=== PATIENT | male | born 1980 | race Caucasian/White ===

== ENCOUNTER 2018-11-08 10:34 | Inpatient (IN) | payer MEDICAID ==
[~2018-11-08] VITALS: Ht 154.9 cm; Wt 94.3 kg
[2018-11-08] MEDS ORDERED: ASPIRIN 325 MG TABLET ONE (10:49)
[2018-11-08 11:00] LABS: LYMPHOCYTES # (AUTO) 1.8 /CMM (0.8-4.8); MONOCYTES # (AUTO) 0.7 /CMM (0.1-1.30); MONOCYTES % (AUTO) 9.1 % (2.0-12.0)
[2018-11-08] MEDS ORDERED: ASPIRIN 325 MG TABLET PO ONE (11:00)
[2018-11-08 11:03] LABS: BASOPHILS % (AUTO) 0.4 % (0.0-2.0); EOSINOPHILS % (AUTO) 0.8 % (0.0-6.0); HEMATOCRIT 45 % (39-51); HEMOGLOBIN 15.4 g/dL (13.5-17.5); LYMPHOCYTES % (AUTO) 22.2 % (20.0-44.0); MEAN CORPUSCULAR HGB CONC 34 g/dl (31.0-36.0); MEAN CORPUSCULAR VOLUME 93 fL (80-96); NEUTROPHILS # (AUTO) 5.5 /CMM (1.8-8.9); NEUTROPHILS % (AUTO) 67.5 % (43.0-81.0); PLATELET COUNT (AUTO) 266 /CMM (150-450); RED BLOOD CELL COUNT(AUTO) 4.85 MIL/uL (4.5-6.0); WHITE BLOOD COUNT (AUTO) 8.1 K/uL (4.3-11.0)
[2018-11-08 11:13] LABS: CALCIUM, SERUM 9.5 mg/dL (8.5-10.1); CARBON DIOXIDE 30 mmol/L (21-32); CHLORIDE 102 mmol/L (98-107); CREATININE 0.6 mg/dL (0.6-1.3); GLUCOSE 124 mg/dL (74-106); SODIUM SERUM 139 mmol/L (136-145); UREA NITROGEN, BLOOD 15 mg/dL (7-18)
[2018-11-08] MEDS ORDERED: IOHEXOL-350 100 ML VIAL IV ONE (13:29)
[2018-11-08] MEDS ORDERED: IV NS 0.9% 250 ML IV ONE (13:30)
[2018-11-08] MEDS ORDERED: CT SWABBABLE VALVE TRANS SET 1 EA INFUS.SET MC ONE (13:30)
[2018-11-08] MEDS ORDERED: METOPROLOL TARTRATE INJ 5 MG/5 ML AMPUL ONE ×2 (13:34→13:50)
[2018-11-08] MEDS ORDERED: METOPROLOL TARTRATE INJ 5 MG/5 ML AMPUL IVP ONE (14:00)
[2018-11-08] MEDS ORDERED: IV NS 0.9% 500 ML IV PRN (14:00)
[2018-11-08] MEDS ORDERED: NITROGLYCERIN 0.4 MG/TAB BOTTLE SL PRN (14:30)
[2018-11-08] MEDS ORDERED: MORPHINE SULFATE INJ 2 MG/ML DISP.SYRIN IV PRN (14:30)
[2018-11-08] MEDS ORDERED: CARVEDILOL 6.25 MG TABLET PO SCH (14:30)
[2018-11-08 16:20] VITALS: BP 112/76
[2018-11-08] MEDS ORDERED: METF-440 PO (16:46)
[2018-11-08] MEDS: METOPROLOL TARTRATE 25 MG TABLET PO SCH (18:22)
[2018-11-08 20:16] VITALS: BP 118/74
[2018-11-09] VITALS: BP 109/64
[2018-11-09] MEDS: METOPROLOL TARTRATE 25 MG TABLET PO SCH ×2 (00:22→05:40)
[2018-11-09] MEDS ORDERED: INSULIN REGULAR, HUMAN 100 UNIT/ML 3 ML VIAL SQ PRN (02:00)
[2018-11-09] MEDS ORDERED: DEXTROSE 50%-WATER 50 ML DISP.SYRIN IV PRN (02:00)
[2018-11-09 04:00] VITALS: BP 112/64
[2018-11-09] MEDS: BLOOD SUGAR DIAGNOSTIC 1 EACH STRIP IN SCH ×2 (06:29→12:57)
[2018-11-09 07:07] LABS: BASOPHILS % (AUTO) 0.2 % (0.0-2.0); EOSINOPHILS % (AUTO) 1.1 % (0.0-6.0); HEMATOCRIT 43 % (39-51); HEMOGLOBIN 14.4 g/dL (13.5-17.5); LYMPHOCYTES % (AUTO) 25.6 % (20.0-44.0); MEAN CORPUSCULAR HGB CONC 34 g/dl (31.0-36.0); MEAN CORPUSCULAR VOLUME 93 fL (80-96); MONOCYTES # (AUTO) 0.7 /CMM (0.1-1.30); MONOCYTES % (AUTO) 9.3 % (2.0-12.0); NEUTROPHILS % (AUTO) 63.8 % (43.0-81.0); PLATELET COUNT (AUTO) 257 /CMM (150-450); RED BLOOD CELL COUNT(AUTO) 4.64 MIL/uL (4.5-6.0); WHITE BLOOD COUNT (AUTO) 7.8 K/uL (4.3-11.0)
[2018-11-09 07:34] LABS: ALANINE AMINOTRANSFERASE 40 U/L (12-78); ALBUMIN 3.6 g/dL (3.4-5.0); ALKALINE PHOSPHATASE 56 U/L (46-116); ASPARTATE AMINOTRANSFERASE 15 U/L (15-37); BILIRUBIN,TOTAL 0.5 mg/dL (0.2-1.0); CALCIUM, SERUM 9.1 mg/dL (8.5-10.1); CARBON DIOXIDE 31 mmol/L (21-32); CHLORIDE 101 mmol/L (98-107); CREATININE 0.7 mg/dL (0.6-1.3); GLUCOSE 118 mg/dL (74-106); MAGNESIUM 1.9 mg/dL (1.8-2.4); PHOSPHORUS 3.7 mg/dL (2.5-4.9); POTASSIUM 3.8 mmol/L (3.5-5.1); SODIUM SERUM 136 mmol/L (136-145); UREA NITROGEN, BLOOD 14 mg/dL (7-18)
[2018-11-09 08:00] VITALS: BP 103/61
[2018-11-09 08:16] VITALS: BP 103/61
[2018-11-09] MEDS ORDERED: ATORVASTATIN 10 MG TABLET PO SCH (09:00)
[2018-11-09] MEDS ORDERED: LOSARTAN POTASSIUM 50 MG TABLET PO SCH (09:00)
[2018-11-09] MEDS ORDERED: ASPIRIN 81 MG TAB.CHEW PO SCH (09:00)
== END 2018-11-09 12:45 | disposition home or self-care (01) | DRG 203 ==
LOC: ER 10:37 → TELE 12:44 → MED 11-09 08:26
PROVIDERS: ADMIT Internal Medicine; ATTEND Internal Medicine
DX: M94.0 Chondrocostal junction syndrome [Tietze] (principal); E66.01 Morbid (severe) obesity due to excess calories; E11.9 Type 2 diabetes mellitus without complications; Z68.39 Body mass index [BMI] 39.0-39.9, adult; Z79.84 Long term (current) use of oral hypoglycemic drugs
CPT/HCPCS: 36415; 71045-TC; 75574; 80048-TC; 80053-TC; 82962-TC; 83735-TC; 84100-TC; 84484-TC; 85025-TC; 85730-TC; 87081-TC; 93307-TC; G0378; J1815; J2270; J3490; J7050; Q9967

== ENCOUNTER 2019-08-21 13:25 | Emergency (ER) | payer SELFPAY ==
[~2019-08-21] VITALS: Ht 157.5 cm; Wt 88.5 kg
[~2019-08-21 13:25] MED LIST: METF-440 PO
--- NOTE | 2019-08-21 13:29 | NUR ---
"C/P PRESSURE LIKE CHEST PAIN x 2 DAYS, RADIATING TO R UPPER BACK" pt [id number], -sob, nad noted, vss ,pending md lopez
[2019-08-21] MEDS ORDERED: NITROGLYCERIN 0.4 MG/TAB BOTTLE ONE (13:43)
[2019-08-21] MEDS ORDERED: ASPIRIN 325 MG TABLET ONE (13:43)
[2019-08-21 13:46] LABS: BASOPHILS # (AUTO) 0.1 /CMM (0.0-0.2); BASOPHILS % (AUTO) 0.6 % (0.0-2.0); EOSINOPHILS % (AUTO) 0.3 % (0.0-6.0); HEMATOCRIT 47 % (39-51); HEMOGLOBIN 16.2 g/dL (13.5-17.5); LYMPHOCYTES # (AUTO) 2.1 /CMM (0.8-4.8); LYMPHOCYTES % (AUTO) 20.9 % (20.0-44.0); MEAN CORPUSCULAR HGB CONC 34 g/dl (31.0-36.0); MEAN CORPUSCULAR VOLUME 92 fL (80-96); MONOCYTES # (AUTO) 0.6 /CMM (0.1-1.30); NEUTROPHILS # (AUTO) 7.1 /CMM (1.8-8.9); NEUTROPHILS % (AUTO) 72.2 % (43.0-81.0); PLATELET COUNT (AUTO) 314 /CMM (150-450); RED BLOOD CELL COUNT(AUTO) 5.14 MIL/uL (4.5-6.0); WHITE BLOOD COUNT (AUTO) 9.9 K/uL (4.3-11.0)
[2019-08-21] MEDS: ASPIRIN 325 MG TABLET PO ONE (13:49)
[2019-08-21] MEDS: NITROGLYCERIN 0.4 MG/TAB BOTTLE SL ONE (13:49)
[2019-08-21 13:54] LABS: CARBON DIOXIDE 30 mmol/L (21-32); CHLORIDE 99 mmol/L (98-107); CREATININE 0.9 mg/dL (0.6-1.3); GLUCOSE 123 mg/dL (74-106); POTASSIUM 3.6 mmol/L (3.5-5.1); SODIUM SERUM 135 mmol/L (136-145); UREA NITROGEN, BLOOD 17 mg/dL (7-18)
[2019-08-21 14:00] LABS: ALANINE AMINOTRANSFERASE 44 U/L (12-78); ALBUMIN 4.2 g/dL (3.4-5.0); ALKALINE PHOSPHATASE 62 U/L (46-116); ASPARTATE AMINOTRANSFERASE 21 U/L (15-37); BILIRUBIN,DIRECT 0.1 mg/dL (0.0-0.2); BILIRUBIN,TOTAL 0.3 mg/dL (0.2-1.0); TOTAL PROTEIN, SERUM 7.8 g/dL (6.4-8.2)
[2019-08-21 16:31] VITALS: BP 124/82
--- NOTE | 2019-08-21 17:36 | NUR ---
Patient discharged to home in stable condition. Written and verbal after care instructions given. Patient verbalizes understanding of instruction. IV removed. Catheter intact and site benign. Pressure and 4x4 applied to site. No bleeding noted.
== END 2019-08-21 17:37 | disposition home or self-care (01) ==
LOC: ER 13:29
DX: R07.89 Other chest pain (principal); E11.9 Type 2 diabetes mellitus without complications; F41.9 Anxiety disorder, unspecified; Z60.2 Problems related to living alone; Z79.899 Other long term (current) drug therapy
CPT/HCPCS: 36415; 71045-TC; 80048-TC; 80076-TC; 84484-TC; 85025-TC; 85730-TC